=== PATIENT | male | born 1960 | race African-American/Black ===

== ENCOUNTER → 2017-12-24 | Outpatient (CLI) | payer OTHER ==
[~2017-12-24] MED LIST: ARTIFICIAL TEA1 EACH; ASPIR 8181 M1 PO; ATIVAN0.5 MG PO; BENTYL 10 MG CA10 M1 PO; BISACODYL SUPP10 MG RECTAL; FENTANYL PA50 MCG/HR TRANSDERM; FLAGYL500 MG IV; FLONASE 0.05%50 MCG NASAL; FOLIC ACID1 MG PO; KEPPRA 500 MG500 M1 PO; KLOR-CON 1010 MEQ PO; LASIX 20 MG TAB20 MG PO; MARCAINE INART; MIRALAX17 G1 PO; MIRALAX17 GM PO; NEXIUM40 MG PO; NORVASC5 MG PO; OXYCODONE HCL 55 MG PO; OXYCONTIN10 M1 PO; PROTONIX40 M1 PO; PROZAC20 MG PO; REFRESH LIQUIGE15 ML; REMERON15 MG PO; ROCEPHIN 11 GM/1001 IV; TENORMIN50 MG PO; TYLENOL325 MG PO; VITAMIN D2000 UNIT PO
[2017-12-24 14:44] VITALS: BP 121/90
== END ==
LOC: SEN 09:15
DX: Z09 Encounter for follow-up examination after completed treatment for conditions other than malignant neoplasm (principal); M79.89 Other specified soft tissue disorders; M25.569 Pain in unspecified knee; I10 Essential (primary) hypertension; Z79.899 Other long term (current) drug therapy

== ENCOUNTER → 2018-01-21 | Outpatient (CLI) | payer OTHER ==
[2018-01-21 13:50] VITALS: BP 109/83
== END ==
LOC: SEN 10:55
DX: Z09 Encounter for follow-up examination after completed treatment for conditions other than malignant neoplasm (principal); I10 Essential (primary) hypertension; K50.90 Crohn's disease, unspecified, without complications; Z79.899 Other long term (current) drug therapy

== ENCOUNTER → 2018-03-04 | Outpatient (CLI) | payer OTHER | LOC: SEN 02-25 15:40 | DX: M17.0 Bilateral primary osteoarthritis of knee (principal); G89.4 Chronic pain syndrome; I10 Essential (primary) hypertension; E11.9 Type 2 diabetes mellitus without complications; Z79.899 Other long term (current) drug therapy ==

== ENCOUNTER → 2018-06-03 | Outpatient (CLI) | payer OTHER | LOC: SEN 10:21 | DX: G89.4 Chronic pain syndrome (principal); M25.511 Pain in right shoulder; F41.1 Generalized anxiety disorder; Z87.891 Personal history of nicotine dependence; Z79.899 Other long term (current) drug therapy ==

== ENCOUNTER → 2018-07-01 | Outpatient (CLI) | payer OTHER | LOC: SEN 09:47 | DX: G89.4 Chronic pain syndrome (principal) ==

== ENCOUNTER → 2018-08-26 | Outpatient (CLI) | payer OTHER | LOC: SEN 12:43 | DX: Z09 Encounter for follow-up examination after completed treatment for conditions other than malignant neoplasm (principal); M25.561 Pain in right knee; M25.562 Pain in left knee; F32.9 Major depressive disorder, single episode, unspecified; I10 Essential (primary) hypertension ==

== ENCOUNTER → 2018-09-23 | Outpatient (CLI) | payer OTHER | LOC: SEN 10:30 | DX: F41.9 Anxiety disorder, unspecified (principal); R19.7 Diarrhea, unspecified; M25.562 Pain in left knee ==

== ENCOUNTER → 2018-11-18 | Outpatient (CLI) | payer OTHER | LOC: SEN 09:28 | DX: M17.0 Bilateral primary osteoarthritis of knee (principal); F41.9 Anxiety disorder, unspecified; G89.4 Chronic pain syndrome ==